=== PATIENT | female | born 1965 | race Caucasian/White ===

== ENCOUNTER 2018-05-18 08:38 | Observation (INO) ==
[~2018-05-18 08:38] MED LIST: RINGER'S SOLUTION,LACTATED 1,000 ML IV PRN; ceFAZolin SODIUM 1 GM in DEXTROSE 5 % IN WATER 100 ML IV PRN
[2018-05-18] MEDS ORDERED: RINGER'S SOLUTION,LACTATED 1,000 ML IV ONE ×3 (09:33→14:19)
[2018-05-18] MEDS ORDERED: LIDOCAINE HCL/EPINEPHRINE 50 ML VIAL IJ ONE ×2 (11:20)
--- NOTE | 2018-05-18 15:16 | OR ---
Operative Report - Dictated Report Narrative: DATE OF PROCEDURE: 05/18/2018 INDICATION: 52-year-old female status post hysterectomy years ago with chronic skin irritation from severe abdominal scar retractions from a secondary wound infection and symptomatic rectocele and cystocele PREOPERATIVE DIAGNOSIS: Abdominal scar with chronic skin irritation from skin retractions, symptomatic vaginal vault prolapse POSTOPERATIVE DIAGNOSIS: Same PROCEDURE: Anterior and posterior colpoperineorrhaphy Right sacral spinous ligament fixation, Abdominal scar revision (18 cm), Cystoscopy SURGEON: Ki Montes D.O. OFFICE CHAIR ASSEMBLER: OR staff ANESTHESIA: Epidural with IV sedation ESTIMATED BLOOD LOSS: 300 mL URINE OUTPUT: 1200 mL FLUID REPLACEMENT: 1950 mL FINDINGS: Abdominal scar with extensive retractions to down to the fascial layer , small fascial defect on the right side of the abdominal incision, cystocele to the hymenal ring, vaginal apex 3 cm from the hymenal ring, rectocele to the hymenal ring, attenuated perineal body SPECIMEN(S): None TECHNIQUE: The patient was taken to the operating room and placed in dorsal lithotomy position after adequate general anesthesia and sterile prep were performed. 1 g of Ancef was given preoperatively. An elliptical incision was made through the skin over the previous retracted scar and carried down to the fascia. Because of the extensive retraction the subcutaneous tissue was freed from the fascia approximately 5 cm cephalad and 2 cm caudad to the incision. Small fascial defect on the right was closed with 2 [id number] 0 Vicryl sutures. Deep subcutaneous tissue was approximated with several single interrupted 2-0 Vicryl stitches. A 7 [place] flat drain was placed on above the fascia and taken out through a stab incision just below the right lower quadrant of her incision and placed to RINKU suction. The subcutaneous and subdermal layer were closed with running 3-0 Monocryl. The skin was closed with 4-0 Monocryl and Dermabond. Prior to placing Dermabond, 3 interrupted 4-0 Monocryl sutures were placed strategically to approximate the incision. Attention was turned to the pelvis. A Wheeler retractor was placed over the perineum. The vaginal mucosa was grasped at the introitus at the 4 and 8 o' clock positions and a rajwinder-shaped resection of peritoneal and vaginal mucosa was removed. The vaginal mucosal was dissected from the underlying rectovaginal fascia to the vaginal apex and laterally to the levator ani lateral border on either side. The uterosacral ligaments were obliterated, therefore the right sacral spinous ligament was identified and a 0 Vicryl suture was placed through the vaginal mucosa of the cuff through the sacral spinous ligament approximately 1 fingerbreadth distal to the ischial spine and back out through the vaginal cuff mucosa. This suture was held for later use. The rectovaginal fascia was plicated in the midline with a running 0 Vicryl suture. Using the same suture, the perineal body was reapproximated. E Attention was turned to the anterior segment. A Chirinos catheter was inserted to drain the bladder and to determine the level of the urethrovesical junction. The vaginal mucosa was grasped at the UV junction and at the vaginal apex. Scalpel was used to make a linear incision through the vaginal mucosa of the bladder. Using sharp and blunt dissection, the vaginal mucosa was dissected laterally from the underlying bladder. The bladder was densely adherent and required a greater effort than usual. Several arterial and venous vessels were encountered along the vaginal mucosa requiring cautery and/or suture to provide hemostasis. Using an 0 Vicryl suture, the bladder was plicated in midline with a running stitch. A second imbricating stitch was placed over the previous one from the UV junction to the vaginal apex. This suture was brought out through the vaginal cuff mucosa and held for later use. Excess vaginal mucosa was excised and the vaginal mucosa was closed with a running 3-0 Vicryl Rapide. Excess vaginal mucosa of the posterior floor of the vagina was excised and approximated with 3-0 Vicryl Rapide. The same suture was used to approximate the skin of the perineum and vaginal introitus. The sacral spinous stitch was tied pulling the vaginal apex up to the level of the ischial spine. The end of the suture used to plicate the bladder which was brought out through the vaginal cuff was tied to the sacral spinous suture. The bladder was drained and the Chirinos catheter was removed. Cystoscopy was performed, noting urine spurting freely from both ureteral orifices. Sponge, lap, instrument, and needle count correct x 2. DISPOSITION: The patient was transferred to postanesthesia care unit in good condition.
[2018-05-18] MEDS ORDERED: MORPHINE SULFATE 2 MG/ML DISP.SYRIN IV PRN (15:55)
[2018-05-18] MEDS ORDERED: oxyCODONE HCL/ACETAMINOPHEN 1 TAB TABLET PO PRN (15:56)
[2018-05-18] MEDS ORDERED: IBUPROFEN 800 MG TABLET PO PRN (15:57)
[2018-05-18] MEDS: KETOROLAC TROMETHAMINE 30 MG/ML VIAL IV ONE (17:01)
[2018-05-18] MEDS: ONDANSETRON HCL/PF 2 MG/ML VIAL IV ONE (17:01)
[2018-05-18] MEDS ORDERED: ONDANSETRON HCL/PF 2 MG/ML VIAL IV PRN (18:52)
[2018-05-18] MEDS ORDERED: HYDROmorphone HCL 2 MG/ML VIAL ONE (19:15)
--- NOTE | 2018-05-18 20:12 | PN ---
Subjective - Date and Time Seen Date: 05/18/18 Time: 20:02 Subjective Narrative: Epidural effects still present - patient unable to feel bladder yet, legs wobbly with walking. No N/V. Increased pain resolved with insertion of bassett catheter and drainage of 600ml of clear urine. AFVSS Abd - soft, ND, incision - c/d/i, RINKU drain - 15 ml of sanguineous drainage. LE - SCDs on, no edema Perineum - min sanguineous drainage Impression: POD#0 s/o extensive abdominal scar revision, A/P repair, perineoplasty, right sacrospinous ligament colpopexy, cystoscopy. prolonged resolution of epidural effects. Post-op urinary retention partially due to epidural and extensive surgical repair. Plan: Will observe overnight since too late to stay in PACU. Inserted bassett catheter - will d/c in am when return of bladder sensation. Ambulate as soon as possible - continue SCDs till ambulating well. Objective - Vitals Vitals: Last Vital Signs Temp 36.5 C 05/18/18 15:29 Pulse 82 05/18/18 17:45 Resp 14 05/18/18 17:45 BP 105/69 05/18/18 17:45 Pulse Ox 94 05/18/18 17:45
[2018-05-18] MEDS: DOCUSATE SODIUM 100 MG CAPSULE PO SCH (22:22)
[2018-05-19] MEDS: oxyCODONE HCL/ACETAMINOPHEN 1 TAB TABLET PO PRN ×3 (04:10→16:32)
[2018-05-19] MEDS: IBUPROFEN 800 MG TABLET PO PRN ×2 (05:53→13:20)
[2018-05-19] MEDS: DOCUSATE SODIUM 100 MG CAPSULE PO SCH ×2 (06:16→08:22)
[2018-05-19] MEDS: ONDANSETRON HCL/PF 2 MG/ML VIAL IV ONE (06:23)
[2018-05-19] MEDS: KETOROLAC TROMETHAMINE 30 MG/ML VIAL IV ONE (06:23)
[2018-05-19] MEDS ORDERED: HYDROmorphone HCL 2 MG/ML VIAL IV PRN (06:58)
--- NOTE | 2018-05-19 15:14 | DS ---
Description of Stay: Pt kept overnight because of prolonged return of function after epidural anesthesia for abdominal scar revision, A/P repair, Right USLF, and cystoscopy. Patient was able to ambulate late evening but still did not have return of bladder sensation as of noon today. She was unable to feel the urge to urinate with 250ml of NS in her bladder and was unable to void. She was sent home with a bassett catheter to gravity bag drainage and instructed to clamp bag tomorrow at noon for a couple hours to see if she feels the urge to void. If the urge is present, she is to remove her catheter and see if she can urinate. If not, insert new bassett and be seen on Wednesday in office. If able to void, f/u in office in 1 week. Procedures Performed: see notes below - bladder scan, bassett catheter to gravity drainage Discharge Location: Home Disposition: Home self-care Condition: Good Discharge Activity: No Lifting Discharge Diet: General/regular food Referrals: Brad Dejesus DO [Primary Care Provider] - Prescriptions (Any new or edited meds): RX: Docusate Sodium [Colace] 100 mg PO BID #28 capsule RX: Ibuprofen [Motrin] 200 - 800 mg PO Q6H PRN #100 tab PRN Reason: Pain Nitrofurantoin Macrocrystal [Macrodantin] 100 mg PO QDIPM #7 capsule RX: oxyCODONE HCL/ACETAMINOPHEN [Percocet 5 MG/325 MG] 1 tab PO Q4H PRN #20 tablet PRN Reason: Moderate Pain Wheat Dextrin [Benefiber] 30 gm PO BID #30 powder Complete Home Medications List: Complete Home Medication List: Amitriptyline HCl [Elavil] 25 mg PO HS 02/16/18 Calcium Carbonate [Calcium] 500 mg PO DAILY 02/16/18 Estradiol/Levonorgestrel [Climara Pro Patch] 1 each TD Q7D 02/16/18 Venlafaxine HCl [Venlafaxine HCl ER] 150 mg PO DAILY 05/17/18 Docusate Sodium [Colace] 100 mg PO BID #28 capsule 05/19/18 Ibuprofen [Motrin] 200 - 800 mg PO Q6H PRN #100 tab 05/19/18 Nitrofurantoin Macrocrystal [Macrodantin] 100 mg PO QDIPM #7 capsule 05/19/18 Wheat Dextrin [Benefiber] 30 gm PO BID #30 powder 05/19/18 oxyCODONE HCL/ACETAMINOPHEN [Percocet 5 MG/325 MG] 1 tab PO Q4H PRN #20 tablet 05/19/18
[2018-05-19 16:50] VITALS: BP 114/47
== END 2018-05-19 16:50 | disposition home or self-care (01) ==
LOC: AMB 08:38 → MS 17:18
PROVIDERS: ADMIT Obstetrics & Gynecology; ATTEND Obstetrics & Gynecology
DX: R20.2 Paresthesia of skin; R33.8 Other retention of urine; Y83.8 Other surgical procedures as the cause of abnormal reaction of the patient, or of later complication, without mention of misadventure at the time of the procedure; T88.59XA Other complications of anesthesia, initial encounter; L90.5 Scar conditions and fibrosis of skin; N81.12 Cystocele, lateral; N81.6 Rectocele; T41.3X5A Adverse effect of local anesthetics, initial encounter; N99.3 Prolapse of vaginal vault after hysterectomy; B94.8 Sequelae of other specified infectious and parasitic diseases
CPT/HCPCS: G0378; J2405